=== PATIENT | male | born 1995 | race Caucasian/White ===

== ENCOUNTER 2020-09-21 13:30 | Emergency (ER) | payer OTHER, SELFPAY ==
[2020-09-21 13:38] VITALS: BP 177/80; PULSE 72; RESP 16; TEMP 36.5; O2SAT 99
--- NOTE | 2020-09-21 13:59 | PC.NURSE ---
patient brought back to ED room 19 with laceration on his left hand. see triage notes. no change in patient's condition since triage completed. sitting in chair in room. no active bleeding. (+)PMS. possible tendon exposed larger laceration. last tetanus 2-3 years ago per patient's report.
[2020-09-21] MEDS: LIDO 1%/EPINEPHRINE 1:100,000 20 ML VIAL 10 ML INFILTRATE (14:11)
--- NOTE | 2020-09-21 14:12 | PC.NURSE ---
room set up for sutures. lidocaine ordered from pharmacy. patient with documented allergy to anesthetics . per patient he is allergic to the gas they give you in the OR .
--- NOTE | 2020-09-21 14:30 | ED.WOUNDLAC ---
HPI - Wound/Laceration General Chief Complaint: Wound/Laceration Stated Complaint: left middle knuckle laceration Time Seen by Provider: 09/21/20 13:50 History of Present Illness HPI narrative: Patient is a 24-year-old male who presents ER with lacerations to the left hand. Located over the dorsal aspect of the proximal phalanx of the third digit and also over the fourth MTP region on the volar aspect. No numbness or tingling. Bleeding controlled. Tetanus up-to-date. Range of motion intact in the wrist and fingers. Related Data Home Medications Medication Instructions Recorded Confirmed methadone See Rx Instructions .ROUTE .COMPLEX 09/21/20 09/21/20 Allergies Allergy/AdvReac Type Severity Reaction Status Date / Time Anesthetics - Amide Type - AdvReac Nausea and Verified 09/21/20 13:43 Select A Vomiting Anesthetics - Janice Type- AdvReac Nausea and Verified 09/21/20 13:43 Parabens Vomiting Review of Systems Musculoskeletal: Musculoskeletal: Denies arthralgias and Denies joint swelling Integumentary/Breasts: Comments: Laceration left hand Neurologic: Denies focal weakness and Denies numbness PMFSH Past Medical History Medical History (Updated 09/21/20 @ 16:03 by Bonifacio Guerra MD) Bone tumor Surgical History Surgical History (Updated 09/21/20 @ 15:55 by Bonifacio Guerra MD) History of orthopedic surgery Bone tumor Social History Social History (Updated 09/21/20 @ 15:55 by Bonifacio Guerra MD) Smoking status: Current every day smoker Substance use type: former substance user Gender identity (if verbalized by the patient): Male Exam Narrative: Exam Narrative: GENERAL: Well-appearing, well-nourished, and in no acute distress. HEAD: Normocephalic, atraumatic. EXTREMITIES: Normal range of motion. 2 cm laceration over the dorsal aspect of the left hand at the fourth MCP. Tendon visualized with longitudinal disruption but strength and range of motion remained intact in the affected digit. SKIN: Warm, dry. Superficial laceration over the third digit dorsal aspect superficial. NEURO: No focal deficits. Alert and oriented x3. PSYCH: Normal mood and affect. Course Course Emergency Course: Discussed case with Dr. Padron. Recommends placing 3-0 Vicryl through the tendon to help repair. He will follow patient up in clinic this week. Patient was splinted in an ulnar gutter splint for protection. Vital Signs Vital signs: Vital Signs Temperature 97.7 F 09/21/20 13:38 Pulse Rate 72 09/21/20 13:38 Respiratory Rate 16 09/21/20 13:38 Blood Pressure 177/80 H 09/21/20 13:38 Pulse Oximetry 99 09/21/20 13:38 Temperature 97.7 F 09/21/20 13:38 Pulse Rate 72 09/21/20 13:38 Respiratory Rate 16 09/21/20 13:38 Blood Pressure 177/80 H 09/21/20 13:38 Pulse Oximetry 99 09/21/20 13:38 Procedures Laceration Laceration 1: Date: 09/21/20 Time: 13:30 Site: hand Side (If applicable): left Size (cm): 2 Description: linear and clean Local Anesthetic: lidocaine 1% and with epi Amount of anesthesia used (mL): 3 Pre-repair: wound explored and irrigated extensively ====== Skin Level ====== Skin layer closed with: nylon Size (cm): 5-0 Number of sutures: 5 Technique: simple, interrupted ====== Subcutaneous Layer ====== ====== Muscle Layer ====== ====== Tendon Layer ====== Tendon layer closed with: vicryl Size: 3-0 Number of sutures: 2 Technique: simple interrupted Laceration 2: Date: 09/21/20 Time: 13:25 Site: other (3rd digit) Side (If applicable): left Size (cm): 1 Description: linear and clean Depth: simple, single layer Local Anesthetic: lidocaine 1% and with epi Amount of anesthesia used (mL): 1 Pre-repair: wound explored and irrigated extensively ====== Skin L
== END 2020-09-21 16:16 | disposition home or self-care (01) ==
PROVIDERS: Emergency Provider Emergency Medicine
DX: S66.323A Laceration of extensor muscle, fascia and tendon of left middle finger at wrist and hand level, initial encounter (principal); S61.213A Laceration without foreign body of left middle finger without damage to nail, initial encounter; F17.200 Nicotine dependence, unspecified, uncomplicated; W27.8XXA Contact with other nonpowered hand tool, initial encounter
CPT/HCPCS: 12001; 12041; 26418; 99282